=== PATIENT | male | born 1990 | race Two or more races ===

== ENCOUNTER 2024-12-25 16:01 | Emergency (ER) | payer OTHER ==
[~2024-12-25] VITALS: Ht 170.2 cm; Wt 145.1 kg
[2024-12-25] MEDS ORDERED: GUAIFENESIN/DEXTROMETHORPHAN 100MG/10ML BLIST.PACK PO ONE (19:30)
[2024-12-25 19:36] LABS: BASO % 0.4 % (0.1-1.2); EOS # 0.69 (0.04-0.54); EOS % 4.9 % (0.7-7.0); LYMPH # 3.06 (1.18-3.74); LYMPH % 21.7 % (19.3-53.1); MEAN PLATELET VOLUME 9.20 fl (9.4-12.4); MONO # 0.88 (0.24-0.82); MONO % 6.3 % (4.7-12.5); NEUT # 9.33 (1.56-6.13); NEUT % 66.3 % (34.0-71.1); RED CELL DISTRIBUTION WIDTH 12.3 % (11.6-14.4)
[2024-12-25 20:06] LABS: COVID-19 AG NEGATIVE (NEGATIVE)
[2024-12-25] MEDS ORDERED: AMOX-CLAV 875-1 EAC1 PO (20:41)
[2024-12-25] MEDS ORDERED: PEPCID AC20 MG PO (20:41)
[2024-12-25] MEDS ORDERED: TUSSIN DM LIQU118 ML PO (20:41)
== END 2024-12-25 22:15 ==
LOC: ER 16:01
PROVIDERS: Preventive Medicine Public Health & General Preventive Medicine
DX: J06.9 Acute upper respiratory infection, unspecified (principal); J02.9 Acute pharyngitis, unspecified; Z20.822 Contact with and (suspected) exposure to COVID-19